=== PATIENT | female | born 1960 | race Caucasian/White ===

== ENCOUNTER 2016-07-22 18:55 | Emergency (ER) | payer SELFPAY ==
[2016-07-22 19:00] VITALS: BP 113/76
--- NOTE | 2016-07-22 19:44 | UC ---
Head Injury HPI - HPI Summary HPI Summary: 56 y/o female presents to the urgent care c/o falling and hitting her head and both knees. 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 About 17: 50 pm, she was trying to reach for a spoon over the counter and she tripped with a box, fell and hit hear forehead. Pt denies LOC, and reports her pain is 4/10 now, with mild ERVIN and mild pain at base of neck with movement. Pt denies N /V/D. dizziness, SOB, chest pain. - History Of Current Complaint Chief Complaint: UCTrauma Stated Complaint: FALL Time Seen by Provider: 07/22/16 19:17 Hx Obtained From: Patient Hx Last Menstrual Period: menopausal ?: No Onset/Duration: Sudden Onset, Lasting Hours, Still Present Severity Currently: Moderate Severity Initially: Mild Pain Intensity: 4 Pain Scale Used: 0-10 Numeric Character: Dull Aggravating Factor(s): Other - movement Associated Signs And Symptoms: Positive: Negative, Neck Pain - mild at the LF side base of the neck. Negative: LOC (Time In Secs./Mins/Hrs), LOC Duration Unknown, Confusion, Memory Loss, Nausea, Vomiting - Allergies/Home Medications Allergies/Adverse Reactions: Allergies Allergy/AdvReac Type Severity Reaction Status Date / Time No Known Allergies Allergy Verified 07/22/16 18:59 PMH/Surg Hx/FS Hx/Imm Hx Previously Healthy: Yes Cardiovascular History: Hypertension GI/ History: Other Other GI/ History: PCOS Psychological History: Depression - Surgical History Surgical History: Yes Surgery Procedure, Year, and Place: cholecystectomy 2008, lumpectomy 2004 - Family History Known Family History: Positive: Cardiac Disease, Hypertension, Diabetes - Social History Occupation: Employed Full-time Lives: With Family Alcohol Use: None Substance Use Type: None Smoking Status (MU): Never Smoked Tobacco Review of Systems Constitutional: Negative Skin: Negative Eyes: Negative ENT: Negative Respiratory: Negative Cardiovascular: Negative Gastrointestinal: Negative Genitourinary: Negative Motor: Negative Neurovascular: Negative Musculoskeletal: Other: - contusion over forehead with rednes and swelling s/p fall, with positive left side neck pain at the base Neurological: Headache - mild All Other Systems Reviewed And Are Negative: Yes Physical Exam Triage Information Reviewed: Yes Appearance: Well-Appearing, No Pain Distress, Well-Nourished, Obese - Alert and oriented x 4, sitting confortably on the examining table with ice pack one her forehead Vital Signs: Initial Vital Signs Temp 98.1 F 07/22/16 18:57 Pulse 103 07/22/16 18:57 Resp 18 07/22/16 18:57 BP 113/76 07/22/16 18:57 Pulse Ox 97 07/22/16 18:57 Vital Signs Reviewed: Yes Eye Exam: Normal Eyes: Positive: Conjunctiva Clear - PERRLA, EOMI, fundi grossly normal. no conjunctival hemorrhages observed. ENT Exam: Normal ENT: Positive: Normal ENT inspection, Hearing grossly normal, Pharynx normal, TMs normal - B/L ear canal clear.. Negative: Tonsillar swelling, Tonsillar exudate Dental Exam: Normal Neck exam: Normal, Other - Head: normocephalic, with positive contusion over the left side of forehead s/p fall with moderate echymosis, swelling and tenderness on palpation. no LOC Neck: Positive: Supple, No Lymphadenopathy, Tenderness @ - Left base side of the neck on deep palpation. FROM of neck no swelling or erythema observed. Respiratory Exam: Normal Respiratory: Positive: Chest non-tender, Lungs clear, Normal breath sounds Cardiovascular Exam: Normal Cardiovascular: Positive: RRR, No Murmur, Pulses Normal - S1S2 Abdominal Exam: Normal Abdomen Description: Positive: Nontender, No Organomegaly, Soft Bowel Sounds: Positive: Present Musculoskeletal Exam: Normal Musculoskeletal: Positive: Strength Intact, ROM Intact, No Edema, Other: - Back normal, no tenderness on palpation or swelling or erythema noted. FROM. no paraspinal tenderness. Neurological Exam: Normal Neurological: Positive: Alert - CNII-CNXII WNL, GCS: 15,, Muscle Tone Normal Psychological Exam: Normal Skin Exam: Normal Skin: Positive: Other - RT dorsal side of hand with rash with erythema and signs of scoriation. Head Injury Course/Dx - Course Course Of Treatment: Pt with forehead injury s/p fall x 2 hrs ago. No LOC:Hx obtained. Pt is not in blood thinners. PE abnormal findings: Pt is A&O x 4, GCS : 15 sitting on the examining table w/o any apparent distress, placing and Ice pack over her forehead. Head: normocephalic, with positive contussion about 4X4 in size, over the left side of forehead s/p fall, no LOC, with moderate echymosis, swelling and tenderness on palpation. Neck: Positive: Supple, No Lymphadenopathy, Tenderness @ - Left base side of the neck on deep palpation. FROM of neck, no swelling or erythema observed. No need for a collar. Head and C-spine CT w/o contrast ordered: Result:Head CT: No acute intracranial pathology. C-Spine CT: Degenerative disc disease and osteoarthritis, No acute osseous injuty of cervical spine, enlarged heterogeneous thyroid observed. Advised further imaging after swelling resolves. Pt educated in the CT results and advised to take Ibuprofen 600mgPO q6-8hrs OTC she has at home after meals to alleviate pain and swelling. Also advised to f/u with Her PCP DR Angelo Ferrer for further evaluation and treament of her thyroid. Pt understood and agreed. Pt left the urgent care ambulating. A&Ox 4. - Differential Dx/Diagnosis Differential Diagnosis/HQI/PQRI: Cerebral Contusion, Cervical Sprain, Concussion Without LOC, Contusion, Hematoma Provider Diagnoses: Forehead injury s/p fall. - Physician Notification/Consults Discussed Patient Care With: Trace Alba MD - DR Alba agreed with treatment plan and discharge. Discharge - Discharge Plan Condition: Stable Disposition: HOME Patient Education Materials: Cervical Strain (ED), Head Injury (ED) Referrals: Angelo Ferrer MD [Medical Doctor] - Additional Instructions: Please take the Ibuprofen 600mg PO q6-8 prn OTC you have at home to alleviate symptoms for the following 2-3 days. Please f/u with you PCP DR Nabil Wiley for further evaluation and treatment in your thyroid since incidental finding of Neck CT of enlarge thyroid. If you dizziness or severe ERVIN, nausea or vomiting develops please go to the ED or return to the urgent care for further treatment.
--- NOTE | 2016-07-22 20:14 | RAD ---
HISTORY: Head injury, status post fall COMPARISONS: None TECHNIQUE: Multiple contiguous axial CT scans were obtained of the head without intravenous contrast. FINDINGS: HEMORRHAGE/INFARCT: There is no hemorrhage or acute infarct. MASSES/SHIFT: There is no mass or shift. EXTRA-AXIAL SPACES: There are no extra-axial fluid collections. SULCI AND VENTRICLES: The sulci and ventricles are normal in size and position for the patient's stated age. CEREBRUM: There are no focal parenchymal abnormalities. BRAINSTEM: There are no focal parenchymal abnormalities. CEREBELLUM: There are no focal parenchymal abnormalities. VESSELS: The vessels are grossly normal. PARANASAL SINUSES: The paranasal sinuses are clear. ORBITS: The orbits are unremarkable. BONES AND SOFT TISSUE: No bone or soft tissue abnormalities are noted. OTHER: None IMPRESSION: NO ACUTE INTRACRANIAL PATHOLOGY.
--- NOTE | 2016-07-22 20:36 | RAD ---
HISTORY: Neck pain status post fall COMPARISONS: None TECHNIQUE: Multiple contiguous axial CT scans were obtained of the cervical spine without intravenous contrast, with coronal and sagittal multiplanar reformations. FINDINGS: BRAIN: The visualized brain is unremarkable CENTRAL CANAL: Evaluation of the central canal is limited on CT technique, however there is no obvious canalicular mass or epidural hemorrhage. ALIGNMENT: The alignment is normal, without subluxation or dislocation. VERTEBRAL BODIES: There is extensive multilevel anterolateral marginal osteophyte formation. The vertebral bodies are preserved in height. There is no displaced fracture. JOINTS: There is uncovertebral and facet osteoarthritis, most pronounced at C5-C6. There is no subluxation or dislocation. There is osteoarthritis of the atlantoaxial articulation. MUSCULATURE: Unremarkable INTERVERTEBRAL DISCS: There is diffuse loss of intervertebral disc height. AXIAL IMAGES: There is bilateral neural foraminal narrowing at C5-C6 and C6-C7, most pronounced on the left at C6-C7. There is no osseous central canal stenosis SOFT TISSUES: The prevertebral fat stripe is preserved. The thyroid gland is diffusely enlarged and heterogeneous. A left-sided chest port is noted OTHER: None. IMPRESSION: 1. DEGENERATIVE DISC DISEASE AND OSTEOARTHRITIS. 2. NO ACUTE OSSEOUS INJURY TO THE CERVICAL SPINE. 3. ENLARGED HETEROGENEOUS THYROID, CONSIDER FURTHER EVALUATION WITH DEDICATED IMAGING OF THE THYROID IN THE NONACUTE SETTING
== END 2016-07-22 21:00 | disposition home or self-care (01) ==
LOC: UCEAST 18:55
DX: S09.90XA Unspecified injury of head, initial encounter (principal); W01.198A Fall on same level from slipping, tripping and stumbling with subsequent striking against other object, initial encounter; Y93.89 Activity, other specified; Y92.89 Other specified places as the place of occurrence of the external cause; Y99.2 Volunteer activity; I10 Essential (primary) hypertension; E28.2 Polycystic ovarian syndrome; F32.9 Major depressive disorder, single episode, unspecified; E66.9 Obesity, unspecified; Z90.49 Acquired absence of other specified parts of digestive tract
CPT/HCPCS: 70450; 72125; 99212; G0463